=== PATIENT | female | born 1965 | race Caucasian/White ===

== ENCOUNTER 2016-06-27 12:57 | Emergency (ER) | payer OTHER ==
[~2016-06-27] VITALS: Ht 172.7 cm; Wt 63.5 kg
[~2016-06-27 12:57] MED LIST: DESV50TA PO; HYDR-3454 PO
--- OUTSIDE RECORDS SUMMARY | 2016-06-27 13:02 | XMS REPORT ---
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 Info Not Available Non Drug Allergy Problems Problem Type Condition Code Onset Dates Condition Status Problem Unspecified follow-up examination V67.9 Active Problem Unspecified conjunctivitis 372.30 Active Problem Cellulitis and abscess of face 682.0 Active Problem Leukorrhea, not specified as infective 623.5 Active Assessment ADHD, predominantly inattentive type F90.0 Active Problem Other, mixed, or unspecified nondependent drug abuse, unspecified 305.90 Active Problem Problems related to high-risk sexual behavior V69.2 Active Problem Attention deficit disorder of childhood without mention of hyperactivity 314.00 Active Problem Generalized anxiety disorder 300.02 Active Problem Acute bronchitis 466.0 Active Problem Umbilical hernia without mention of obstruction or gangrene 553.1 Active Problem Attention deficit disorder of childhood with hyperactivity 314.01 Active Problem Incisional hernia without mention of obstruction or gangrene 553.21 Active Assessment Unspecified mood [affective] disorder F39 Active Assessment Generalized anxiety disorder F41.1 Active Problem Counseling on substance use and abuse V65.42 Active Problem Nondependent tobacco use disorder 305.1 Active Problem Abdominal pain, periumbilic 789.05 Active Problem Unspecified ventral hernia without mention of obstruction or gangrene 553.20 Active Problem Contact dermatitis and other eczema, due to unspecified cause 692.9 Active Problem Anxiety state, unspecified 300.00 Active Medications Medication Code System Code Instructions Start Date End Date Status Dosage Klonopin [facility] [address]-79 0.5 MG Orally Twice a day PRN September 05, 2014 1 tablet Adderall XR [facility] [address]-06 15 MG Orally Once a day qAM for ADHD Dr Sharma to sign for Cori September 05, 2014 1 capsule Zoloft [facility] [address]-68 100 MG Orally Take 1/2 tab at bedtime X7 days, then take one tab at bedtime Apr 04, 2015 1 tablet Procedures Procedure Coding System Code Date Office Visit, Bernardo Pt., Level 3 CPT-4 82897 Apr 04, 2015 Vital Signs Date/Time: Apr 04, 2015 Cardiac Monitoring Heart Rate 60 bpm Weight 135.4 lbs Height 68 in BMI 20.59 Index Blood Pressure Diastolic 70 mmHg Blood Pressure Systolic 98 mmHg Results No Known Results Summary Purpose eClinicalWorks Submission
[2016-06-27] MEDS ORDERED: CLON1TAB PO (13:20)
[2016-06-27] MEDS ORDERED: DEXT10TA9 PO (13:20)
[2016-06-27 14:12] LABS: BILIRUBIN,URINE NEGATIVE (NEGATIVE); KETONES,URINE NEGATIVE (NEGATIVE); LEUKOCYTE ESTERASE ,URINE NEGATIVE (NEGATIVE); NITRITE,URINE NEGATIVE (NEGATIVE); PH,URINE 7 (5-9); PROTEIN,URINE NEGATIVE (NEGATIVE); UROBILINOGEN,URINE NORMAL (NORMAL)
[2016-06-27 14:22] LABS: SQUAMOUS EPITHELIAL CELL,UR 25-50 /HPF
[2016-06-27 14:23] LABS: BASOPHILS % (AUTO) 0 % (0-10); EOSINOPHILS # (AUTO) 0.2 10^3/uL (0.0-0.3); EOSINOPHILS % (AUTO) 2 % (0-10); LYMPHOCYTES # (AUTO) 1.4 X 10^3 (1.0-4.0); LYMPHOCYTES % (AUTO) 15 % (12-44); MEAN CORPUSCULAR HEMOGLOBIN 32 PG (25-34); MEAN CORPUSCULAR HGB CONC 35 G/DL (32-36); MEAN CORPUSCULAR VOLUME 93 FL (80-99); MEAN PLATELET VOLUME 11.1 FL (7.4-10.4); MONOCYTES # (AUTO) 0.6 X 10^3 (0.0-1.0); MONOCYTES % (AUTO) 7 % (0-12); NEUTROPHILS # (AUTO) 7.2 X 10^3 (1.8-7.8); NEUTROPHILS % (AUTO) 76 % (42-75); PLATELET COUNT 290 10^3/uL (130-400); RED BLOOD COUNT 4.81 10^6/uL (4.35-5.85); RED CELL DISTRIBUTION WIDTH 12.5 % (10.0-14.5); WHITE BLOOD COUNT 9.4 10^3/uL (4.3-11.0)
[2016-06-27 14:42] LABS: ALANINE AMINOTRANSFERASE 16 U/L (0-55); ALBUMIN 4.7 G/DL (3.2-4.5); ANION GAP 12 MMOL/L (5-14); ASPARTATE AMINO TRANSFERASE 18 U/L (5-34); BILIRUBIN,TOTAL 0.3 MG/DL (0.1-1.0); BLOOD UREA NITROGEN 19 MG/DL (7-18); BUN/CREATININE RATIO 23; CALCIUM 9.9 MG/DL (8.5-10.1); CARBON DIOXIDE 25 MMOL/L (21-32); CHLORIDE 102 MMOL/L (98-107); CREATININE SERUM 0.82 MG/DL (0.60-1.30); GFR ESTIMATED > 60; GLUCOSE 82 MG/DL (70-105); POTASSIUM 4.5 MMOL/L (3.6-5.0); SODIUM 139 MMOL/L (135-145); TOTAL PROTEIN 7.7 G/DL (6.4-8.2)
[2016-06-27 14:52] LABS: ACETAMINOPHEN < 10 UG/ML (10-30); ALCOHOL < 10 MG/DL (<10)
[2016-06-27] MEDS ORDERED: CLON0.5T PO (14:59)
--- NOTE | 2016-06-27 15:01 | ED Psychosocial ---
General Chief Complaint: Psych/Social Disorder Stated Complaint: SUICIDAL Nursing Triage Note: to ER by [facility] with reports of feeling like she wants to go to sleep and go to [facility]. 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 Patient reports increased need for Klonopin use. Source: patient Exam Limitations: no limitations History of Present Illness Time seen by provider: 14:58 Initial Comments The patient is a 51-year-old white female who was brought by ambulance after others called EMS out of concern over her state of affairs. She then told the ambulance crew that she took 8 Klonopin because she wanted to go to sleep and not wake up. She now states that she meant that she wanted to sleep for more than 15 minutes. She states she takes the Klonopin on a when necessary basis for anxiety and sleep. Timing/Duration: this morning Associated Symptoms: anxiety Allergies and Home Medications Allergies Coded Allergies: No Known Drug Allergies (Unverified , 07/27/13) Home Medications Clonazepam 0.5 Mg Tablet 0.5 MG PO DAILY PRN PRN PRN ANXIETY (Reported) Dextroamphetamine/Amphetamine 10 Mg Tablet 10 MG PO (Reported) Constitutional: see HPI EENTM: no symptoms reported Respiratory: no symptoms reported Cardiovascular: no symptoms reported Gastrointestinal: no symptoms reported Genitourinary: no symptoms reported Musculoskeletal: no symptoms reported Skin: no symptoms reported Psychiatric/Neurological: No Symptoms Reported Past Nssyvby-Bktbmo-Xfxufl Hx Patient Social History Alcohol Use: Occasionally Uses Recreational Drug Use: No (METH NONE FOR 4 MONTHS) Smoking Status: Never a Smoker Recent Foreign Travel: No Contact w/Someone Who Travel: No Recent Infectious Disease Expo: No Recent Hopitalizations: No Physical Abuse Screen: No Sexual Abuse: No Immunizations Up To Date Tetanus Booster (TDap): Unknown Surgeries HX Surgeries: Yes (hernia repair) Surgeries: Section Respiratory Hx Respiratory Disorders: No Cardiovascular Hx Cardiac Disorders: No Neurological Hx Neurological Disorders: No 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 Genitourinary Hx Genitourinary Disorders: No Gastrointestinal Hx Gastrointestinal Disorders: Yes (VENTRAL HERNIA) Musculoskeletal Hx Musculoskeletal Disorders: No Endocrine Hx Endocrine Disorders: No HEENT HX ENT Disorders: No Blood Transfusions Hx Blood Disorders: No Physical Exam Vital Signs Vital Sign - Last 12Hours 06/27/16 13:00 Temp 98.2 Pulse 64 Resp 18 B/P 118/76 Pulse Ox 96 O2 Delivery Room Air Capillary Refill : Less Than 3 Seconds General Appearance: other (sleeping) HEENT: normal ENT inspection Neck: full range of motion Respiratory: chest non-tender lungs clear normal breath sounds no respiratory distress no accessory muscle use respiratory distress Cardiovascular: normal peripheral pulses regular rate, rhythm no edema no gallop no JVD no murmur Gastrointestinal: normal bowel sounds non tender soft no organomegaly Extremities: normal range of motion non-tender normal inspection no pedal edema no calf tenderness normal capillary refill pelvis stable Behavior/Eye Contact: cooperative Thoughts/Hallucinations: no apparent hallucination Skin: normal color warm/dry Lymphatic: no adenopathy Progress/Results/Core Measures Results/Orders Lab Results Laboratory Tests Test 06/27/16 14:05 06/27/16 14:12 Range/Units Ur Tricyclic Antidepressants Screen NEGATIVE NEGATIVE Urine Amphetamines Screen NEGATIVE NEGATIVE Urine Bacteria NEGATIVE /HPF Urine Barbiturates Screen NEGATIVE NEGATIVE Urine Benzodiazepines Screen NEGATIVE NEGATIVE Urine Bilirubin NEGATIVE NEGATIVE Urine Cannabinoids Screen NEGATIVE NEGATIVE Urine Casts NONE /LPF Urine Clarity CLEAR Urine Cocaine Screen NEGATIVE NEGATIVE Urine Color YELLOW Urine Crystals NONE /LPF Urine Culture Indicated NO Urine Glucose (UA) NEGATIVE NEGATIVE Urine Ketones NEGATIVE NEGATIVE Urine Leukocyte Esterase NEGATIVE NEGATIVE Urine Methadone Screen NEGATIVE NEGATIVE Urine Methamphetamines Screen NEGATIVE NEGATIVE Urine Mucus NEGATIVE /LPF Urine Nitrite NEGATIVE NEGATIVE Urine Opiates Screen NEGATIVE NEGATIVE Urine Oxycodone Screen NEGATIVE NEGATIVE Urine Phencyclidine Screen NEGATIVE NEGATIVE Urine Propoxyphene Screen NEGATIVE NEGATIVE Urine Protein NEGATIVE NEGATIVE Urine RBC NONE /HPF Urine RBC (Auto) 2+ H NEGATIVE Urine Specific Palmer 1.010 L 1.016-1.022 Urine Squamous Epithelial Cells 25-50 H /HPF Urine Urobilinogen NORMAL NORMAL MG/DL Urine WBC NONE /HPF Urine pH 7 5-9 Acetaminophen Level < 10 L 10-30 UG/ML Alanine Aminotransferase (ALT/SGPT) 16 0-55 U/L Albumin 4.7 H 3.2-4.5 G/DL Alkaline Phosphatase 75 40-136 U/L Anion Gap 12 5-14 MMOL/L Aspartate Amino Transf (AST/SGOT) 18 5-34 U/L BUN/Creatinine Ratio 23 Basophils # (Auto) 0.0 0.0-0.1 10^3/uL Basophils (%) (Auto) 0 0-10 % Blood Urea Nitrogen 19 H 7-18 MG/DL Calcium Level 9.9 8.5-10.1 MG/DL Carbon Dioxide Level 25 21-32 MMOL/L Chloride Level 102 98-107 MMOL/L Creatinine 0.82 0.60-1.30 MG/DL Eosinophils # (Auto) 0.2 0.0-0.3 10^3/uL Eosinophils (%) (Auto) 2 0-10 % Estimat Glomerular Filtration Rate > 60 Glucose Level 82 70-105 MG/DL Hematocrit 45 35-52 % Hemoglobin 15.4 11.5-16.0 G/DL Lymphocytes # (Auto) 1.4 1.0-4.0 X 10^3 Lymphocytes (%) (Auto) 15 12-44 % Mean Corpuscular Hemoglobin 32 25-34 PG Mean Corpuscular Hemoglobin Concent 35 32-36 G/DL Mean Corpuscular Volume 93 80-99 FL Mean Platelet Volume 11.1 H 7.4-10.4 FL Monocytes # (Auto) 0.6 0.0-1.0 X 10^3 Monocytes (%) (Auto) 7 0-12 % Neutrophils # (Auto) 7.2 1.8-7.8 X 10^3 Neutrophils (%) (Auto) 76 H 42-75 % Platelet Count 290 130-400 10^3/uL Potassium Level 4.5 3.6-5.0 MMOL/L Red Blood Count 4.81 4.35-5.85 10^6/uL Red Cell Distribution Width 12.5 10.0-14.5 % Serum Alcohol < 10 <10 MG/DL Sodium Level 139 135-145 MMOL/L Total Bilirubin 0.3 0.1-1.0 MG/DL Total Protein 7.7 6.4-8.2 G/DL White Blood Count 9.4 4.3-11.0 10^3/uL My Orders Orders-AURORA RIOS MD Acetaminophen (06/27/16 13:33) Alcohol (06/27/16 13:33) Cbc With Automated Diff (06/27/16 13:33) Comprehensive Metabolic Panel (06/27/16 13:33) Drug Screen Stat (Urine) (06/27/16 13:33) Ua Culture If Indicated (06/27/16 13:33) Ekg Tracing (06/27/16 13:34) Vital Signs/I&O Vital Sign - Last 12Hours 06/27/16 13:00 Temp 98.2 Pulse 64 Resp 18 B/P 118/76 Pulse Ox 96 O2 Delivery Room Air Blood Pressure Mean: 90 Departure Communication Progress Notes Mental health has screened the patient. They have known her for some time and do not believe her to be suicidal. They will arrange an attendant in her home for today and a clinic appointment on Tuesday. Impression Impression: Primary Impression: Klonopin abuse Disposition: HOME, SELF-CARE Condition: Stable/Unchanged Departure-Patient Inst. Decision time for Depature: 15:49 Referrals: [facility] (PCP/Family) Primary Care Physician Add. Discharge Instructions: All discharge instructions reviewed with patient and/or family. Voiced understanding. No use of Klonopin or other hypnotics until you have been seen by year mental health counselor AURORA RIOS MD Jun 27, 2016 15:01
[2016-06-27 15:55] VITALS: BP 124/70
== END 2016-06-27 15:55 | disposition home or self-care (01) ==
LOC: EDUNIT# 12:57 → ER 12:58
DX: T42.4X1A Poisoning by benzodiazepines, accidental (unintentional), initial encounter (principal); F43.9 Reaction to severe stress, unspecified
CPT/HCPCS: 36415; 80053; 80306; 80320; 80329; 81000; 85025; 93005